=== PATIENT | male | born 1955 | race Hispanic/Latino ===

== ENCOUNTER 2018-04-05 10:10 | Inpatient (IN) | payer OTHER ==
[~2018-04-05] VITALS: Ht 167.6 cm; Wt 93.6 kg
[2018-04-05] MEDS ORDERED: IPRATROPIUM BROMIDE 0.02% 2.5 ML NEB NEB STA (10:20)
[2018-04-05] MEDS ORDERED: SODIUM CHLORIDE 0.9% 1000ML 1,000 ML IV STA (10:20)
[2018-04-05] MEDS ORDERED: ALBUTEROL SULF 0.083% NEB SOLN 3 ML NEB NEB STA (10:20)
[2018-04-05] MEDS ORDERED: BENZONATATE100 MG PO (10:33)
[2018-04-05] MEDS ORDERED: LISINOPRIL-HCT1 EAC1 PO (10:33)
[2018-04-05] MEDS ORDERED: CETIRIZINE HCL10 M1 PO (10:33)
[2018-04-05] MEDS ORDERED: ATORVASTATIN CA20 MG PO (10:33)
[2018-04-05] MEDS ORDERED: CRESTOR10 MG PO (10:33)
[2018-04-05] MEDS ORDERED: LOW DOSE ASPIRI81 MG PO (10:33)
[2018-04-05] MEDS ORDERED: FENOFIBRATE145 MG PO (10:33)
[2018-04-05 10:48] LABS: BASOPHILS # (AUTO) 0.1 (0.0-0.1); BASOPHILS % 0.7 % (0.0-1.0); EOSINOPHILS # (AUTO) 0.2 (0.0-0.4); EOSINOPHILS % 2.1 % (0.0-6.0); HEMATOCRIT 44.1 % (38.2-49.6); HEMOGLOBIN 14.1 g/dL (14.0-18.0); LYMPHOCYTES # (AUTO) 1.3 (1.0-3.2); MEAN CORPUSCULAR HEMOGLOBIN 27.8 pg (28-32); MONOCYTES # (AUTO) 0.8 (0.2-0.8); MONOCYTES % 9.3 % (4.4-11.3); NEUTROPHILS # (AUTO) 6.3 (2.1-6.9); NEUTROPHILS % 72.3 % (38.7-80.0); PLATELET COUNT 349 x10e3/uL (140-360); RED BLOOD COUNT 5.07 x10e6/uL (4.3-5.7); RED CELL DISTRIBUTION WIDTH 13.1 % (11.7-14.4)
[2018-04-05 10:57] LABS: INR 0.98; PARTIAL THROMBOPLASTIN TIME 29.7 seconds (23.8-35.5); PROTHROMBIN TIME 13.9 seconds (11.9-14.5)
[2018-04-05] MEDS ORDERED: KETOROLAC TROMETHAMINE 30 MG/ML VIAL IV ONE (11:00)
[2018-04-05] MEDS ORDERED: ACETAMINOPHEN/CODEINE ELIX 120-12 MG/5 ML UDC PO ONE (11:00)
[2018-04-05 11:05] LABS: ALANINE AMINOTRANSFERASE 20 IU/L (0-55); ALBUMIN 3.7 g/dL (3.5-5.0); ALBUMIN/GLOBULIN RATIO 0.9 (0.8-2.0); ALKALINE PHOSPHATASE 71 IU/L (40-150); ANION GAP 13.6 mmol/L (8-16); BLOOD UREA NITROGEN 14 mg/dL (7-26); BUN/CREATININE RATIO 15 (6-25); CALCIUM 9.8 mg/dL (8.4-10.2); CARBON DIOXIDE 24 mmol/L (22-29); CHLORIDE 100 mmol/L (98-107); CREATINE KINASE 338 IU/L (30-200); CREATININE, SERUM 0.96 mg/dL (0.72-1.25); EST GLOMERULAR FILTRATION RATE > 60 ML/MIN (60-); GLUCOSE 112 mg/dL (74-118); POTASSIUM 3.6 mmol/L (3.5-5.1); SODIUM 134 mmol/L (136-145)
--- NOTE | 2018-04-05 13:03 | Diagnostic Imaging Report ---
EXAMINATION: PA and lateral views of the chest. COMPARISON: None CLINICAL HISTORY: Cough with back and chest pain DISCUSSION: The lungs are well-inflated. There is consolidation anteriorly within the left lower lobe, with partial loss of the hemidiaphragmatic contour. Trace associated pleural effusion. Right lung is clear. Multiple median sternotomy wires and mediastinal surgical clips. Normal heart size. No overt pulmonary edema. No acute osseous abnormality. IMPRESSION: Left lower lobe pneumonia with trace parapneumonic effusion versus postsurgical pleural thickening. Follow-up chest radiograph in 8 weeks is suggested to document resolution. Signed by: Dr. Kelechi Temple M.D. on 04/05/2018 1:00 PM
[2018-04-05] MEDS ORDERED: SODIUM CHLORIDE 0.9% 1000ML 1,000 ML IV ONE (14:15)
[2018-04-05] MEDS: CEFTRIAXONE SOD 1 GM/NS 50 ML 50 ML IV SCH ×2 (14:37→18:30)
[2018-04-05] MEDS: ALBUTEROL SULF 0.083% NEB SOLN 3 ML NEB NEB SCH ×3 (15:00→23:00)
--- NOTE | 2018-04-05 15:00 | Diagnostic Imaging Report ---
EXAMINATION: CT scan of the chest without contrast. TECHNIQUE: Spiral CT images of the chest were performed from the lung apices to the level of the adrenal glands. No intravenous contrast was administered per referring physician request. Coronal and sagittal reformatted images were obtained. COMPARISON: Chest radiograph same day CLINICAL HISTORY:Pneumonia DISCUSSION: ABSENCE OF INTRAVENOUS CONTRAST DECREASES SENSITIVITY FOR DETECTION OF FOCAL LESIONS AND VASCULAR PATHOLOGY. LINES/TUBES: None. LUNGS AND AIRWAYS: Dense consolidation of the anterior aspect of the left lower lobe with adjacent groundglass and peribronchial vascular opacities within the posterior left lower lobe. Increased peribronchial soft tissue along the inferior lingular bronchi as well. Marked narrowing and abrupt cut off of the anterior and lateral segmental bronchi of the left lower lobe for example on series 3 image 59. 3 mm nodule in the periphery of the right upper lobe seen on series 3 image 31. Trace reticular and groundglass opacity in the dependent right lower lobe compatible with subsegmental atelectasis. PLEURA: Prominent extrapleural fat and lateral left basal pleural thickening. No pleural effusion or pneumothorax. HEART AND MEDIASTINUM: Visualized portions of the thyroid gland are unremarkable. Postoperative sequela of coronary artery bypass graft. Atherosclerotic calcification of the aortic arch and [place] coronary arteries. Heart size is normal. No pericardial effusion. LYMPH NODES: Mediastinal lymph nodes are increased in number though not enlarged by CT criteria. The largest individual lymph node is at the subcarinal station and measures 9 mm short axis. ABDOMEN: Visualized portions of the liver and spleen as well as the adrenal glands are unremarkable. BONES AND SOFT TISSUES: . Status post median sternotomy. Acute-subacute fracture deformity of the left lateral sixth rib with Healed fracture deformities of the left posterior ninth and posterior 10th ribs. Round, lucent lesion measuring 1 cm in the left side of the T11 vertebral body (series 2 image 101). Lucent lesion measuring 1.5 cm in diameter within the center of the T9 vertebral body (series 2 image 79). IMPRESSION: Anterior left lower lobe dense consolidation may represent pneumonia, though abrupt segmental bronchial cut off and peribronchial soft tissue extension to the hilum and along the inferior lingular bronchi raises the possibility of lung neoplasm with postobstructive pneumonia. (Of note, patient endorses cough and left-sided chest pain for the past 2 months). Pulmonary consultation for potential bronchoscopy is suggested. Lytic lesions in the T9 and T11 vertebral bodies are indeterminant and further evaluation with nuclear medicine bone scan or thoracic spine MRI is suggested. Signed by: Dr. Kelechi Temple M.D. on 04/05/2018 2:56 PM
[2018-04-05] MEDS: AZITHROMYCIN 500MG/NS 250 ML 250 ML IV SCH ×2 (15:14→18:30)
--- OUTSIDE RECORDS SUMMARY | 2018-04-05 15:43 | XMS REPORT ---
[facility] Address Unknown Phone Unavailable Care Team Providers Care Emu Farmer Name Role Phone Emanuel KIM Unavailable Unavailable Problems This patient has no known problems. Allergies, Adverse Reactions, Alerts This patient has no known allergies or adverse reactions. Medications This patient has no known medications. Results Test Description Test Time Test Comments Text Results Atomic Results Result Comments CT CHEST WO 2018-04-05 14:39:00 [place] [address] Patient Name: GLENIS NAQVI MR #: [id number] : 1955 Age/Sex: 62/M Req #: [id number] Adm Physician: Ordered by: LIZBETH KIM MD Report #: [id number] Location: ER Room/Bed: Procedure: [id number] CT/CT CHEST WO Exam Date: 04/05/18 Exam Time: 1408 REPORT STATUS: Signed EXAMINATION: CT scan of the chest without contrast. JUSTIN HNIQUE: Spiral CT images of the chest were performed from the lung apices to the level of the adrenal glands. No intravenous contrast was administered per referring physician request. Coronal and sagittal reformatted images were obtained. COMPARISON: Chest radiograph same day CLINICAL HISTORY:Pneumonia DISCUSSION: ABSENCE OF INTRAVENOUS CONTRAST DECREASES SENSITIVITY FOR DETECTION OF FOCAL LESIONS AND VASCULAR PATHOLOGY. LINES/TUBES: None. LUNGS AND AIRWAYS: Dense consolidation of the anterior aspect of the left lower lobe with adjacent groundglass and peribronchial vascular opacities within the posterior left lower lobe. Increased peribronchial soft tissue along the inferior lingular bronchi as well. Marked narrowing and abrupt cut off of the anterior and lateral segmental bronchi of the left lower lobe for example on series 3 image 59. 3 mm nodule in the periphery of the right upper lobe seen on series 3 image 31. Trace reticular and groundglass opacity in the dependent right lower lobe compatible with subsegmental atelectasis. PLEURA: Prominent extrapleural fat and lateral left basal pleural thickening. No pleural effusion or pneumothorax. HEART AND MEDIASTINUM: Visualized portions of the thyroid gland are unremarkable. Postoperative sequela of coronary artery bypass graft. Atherosclerotic calcification of the aortic arch and [place] coronary arteries. Heart size is normal. No pericardial effusion. LYMPH NODES: Mediastinal lymph nodes are increased in number though not enlarged by CT criteria. The largest individual lymph node is at the subcarinal station and measures 9 mm short axis. ABDOMEN: Visualized portions of the liver and spleen as well as the adrenal glands are unremarkable. BONES AND SOFT TISSUES: . Status post median sternotomy. Acute-subacute fracture deformity of the left lateral sixth rib with Healed fracture deformities of the left posterior ninth and posterior 10th ribs. Round, lucent lesion measuring 1 cm in the left side of the T11 vertebral body (series 2 image 101). Lucent lesion measuring 1.5 cm in diameter within the center of the T9 vertebral body (series 2 image 79). IMPRESSION: Anterior left lower lobe dense consolidation may represent pneumonia, though abrupt segmental bronchial cut off and peribronchial soft tissue extension to the hilum and along the inferior lingular bronchi raises the possibility of lung neoplasm with postobstructive pneumonia. (Of note, patient endorses cough and left-sided chest pain for the past 2 months). Pulmonary consultation for potential bronchoscopy is suggested. Lytic lesions in the T9 and T11 vertebral bodies are indeterminant and further evaluation with nuclear medicine bone scan or thoracic spine MRI is suggested. Signed by: Dr. Barbara Quarles M.D. on 04/05/2018 2:56 PM Dictated By: BARBARA QUARLES MD [id number] Transcribed By: JOSE on 04/05/18 2742 COPY TO: LIZBETH KIM MD CHEST 2 VIEWS 2018-04-05 12:57:00 [facility] [address] [address] Patient Name: GLENIS NAQVI MR #: [id number] : 1955 Age/Sex: 62/M Req #: [id number] Adm Physician: Ordered by: PARISH MOSQUERA NP Report #: [id number] Location: ER Room/Bed: Procedure: [id number] DX/CHEST 2 VIEWS Exam Date: Exam Time: REPORT STATUS: Signed EXAMINATION: PA and lateral views of the chest. COMPARISON: None CLINICAL HISTORY: Cough with back and chest pain DISCUSSION: The lungs are well-inflated. There is consolidation anteriorly within the left lower lobe, with partial loss of the hemidiaphragmatic contour. Trace associated pleural effusion. Right lung is clear. Multiple median sternotomy wires and mediastinal surgical clips. Normal heart size. No overt pulmonary edema. No acute osseous abnormality. IMPRESSION: Left lower lobe pneumonia with trace parapneumonic effusion versus postsurgical pleural thickening. Follow-up chest radiograph in 8 weeks is suggested to document resolution. Signed by: Dr. Barbara Quarles M.D. on 04/05/2018 1:00 PM Dictated By: BARBARA QUARLES MD 1300 Transcribed By: JOSE on 04/05/18 1300 COPY TO: PARISH MOSQUERA NP
[2018-04-05 16:35] VITALS: BP 128/66
[2018-04-05 17:50] VITALS: BP 128/66
[2018-04-05] MEDS: IPRATROPIUM BROMIDE 0.02% 2.5 ML NEB NEB SCH ×2 (18:00→19:00)
[2018-04-05 18:52] LABS: CREATINE KINASE 259 IU/L (30-200)
[2018-04-05 19:28] VITALS: BP 120/58
--- NOTE | 2018-04-05 19:43 | NUR ---
report given to oncoming nurse, for continued care.
[2018-04-05 22:59] VITALS: BP 120/58
[2018-04-06] VITALS (8 sets, daily range): BP systolic 118–143; BP diastolic 58–72
[2018-04-06] MEDS: IPRATROPIUM BROMIDE 0.02% 2.5 ML NEB NEB SCH ×4 (01:00→19:50)
[2018-04-06] MEDS: ALBUTEROL SULF 0.083% NEB SOLN 3 ML NEB NEB SCH ×4 (03:00→19:50)
[2018-04-06 03:17] LABS: CREATINE KINASE 234 IU/L (30-200)
[2018-04-06 06:12] LABS: BASOPHILS # (AUTO) 0.1 (0.0-0.1); BASOPHILS % 0.6 % (0.0-1.0); EOSINOPHILS # (AUTO) 0.3 (0.0-0.4); EOSINOPHILS % 3.9 % (0.0-6.0); HEMATOCRIT 42.1 % (38.2-49.6); HEMOGLOBIN 12.8 g/dL (14.0-18.0); LYMPHOCYTES # (AUTO) 1.5 (1.0-3.2); LYMPHOCYTES % 16.8 % (18.0-39.1); MEAN CORPUSCULAR HEMOGLOBIN 27.5 pg (28-32); MEAN CORPUSCULAR HGB CONC 30.4 g/dL (31-35); MEAN CORPUSCULAR VOLUME 90.3 fL (81-99); MONOCYTES # (AUTO) 0.9 (0.2-0.8); MONOCYTES % 9.8 % (4.4-11.3); NEUTROPHILS % 68.6 % (38.7-80.0); PLATELET COUNT 306 x10e3/uL (140-360); RED BLOOD COUNT 4.66 x10e6/uL (4.3-5.7); RED CELL DISTRIBUTION WIDTH 13.1 % (11.7-14.4)
[2018-04-06 06:40] LABS: CREATINE KINASE 220 IU/L (30-200)
[2018-04-06 06:42] LABS: ALANINE AMINOTRANSFERASE 18 IU/L (0-55); ALBUMIN 3.2 g/dL (3.5-5.0); ALKALINE PHOSPHATASE 58 IU/L (40-150); ANION GAP 11.9 mmol/L (8-16); BLOOD UREA NITROGEN 13 mg/dL (7-26); BUN/CREATININE RATIO 15 (6-25); CARBON DIOXIDE 24 mmol/L (22-29); CHLORIDE 103 mmol/L (98-107); CREATININE, SERUM 0.89 mg/dL (0.72-1.25); EST GLOMERULAR FILTRATION RATE > 60 ML/MIN (60-); GLUCOSE 96 mg/dL (74-118); POTASSIUM 3.9 mmol/L (3.5-5.1); SODIUM 135 mmol/L (136-145)
--- NOTE | 2018-04-06 08:29 | Consultation ---
DATE OF CONSULTATION: PULMONARY CONSULTATION This is a patient of Dr. Lubin. The patient was admitted with cough and chills of 2 months' duration, chest pain which he thought was related to the cough, and cramping pain. Cough was productive of white sputum. Two-pound weight loss. Feels tired easily on exertion. Works in the [employer]. NO ALLERGIES. His medications include Lipitor, Tessalon Perles, fenofibrate, Crestor, aspirin, Zyrtec, lisinopril, hydrochlorothiazide. He has a history of an [place] 5 years ago. He quit smoking at that time. He had bypass surgery at that time. Smoked a pack a day for 30 years. Family history is positive for cancer in mother, unknown type. Born in [place]. PHYSICAL EXAMINATION GENERAL: He is a well-developed, burly white male in no acute distress, looking his stated age. VITALS: Temperature 97, pulse 95, respirations 20, blood pressure 132/64. HEAD: Normocephalic and atraumatic. EYES: The extraocular movements are intact. LUNGS: Rales at left base. HEART: Regular rhythm. ABDOMEN: Nontender. EXTREMITIES: Not edematous. IMPRESSION 1. Postobstructive pneumonia. 2. Lung cancer with lytic lesions in T7 and T9 suspected. RECOMMENDATIONS: Continue antibiotic therapy. Hold aspirin. Bronchoscopy and biopsy to rule out occult endobronchial lesion. Bone scan is recommend by radiology. Thank you for this kind referral. Job#: [id number]
--- NOTE | 2018-04-06 14:30 | NUR ---
CASE MANAGEMENT INITIAL ASSESSMENT Tacking Machine Operator to bedside to discuss plan of care with patient/family. CM/SW role and care transitions discussed. Anticipated discharge plan discussed along with duration of care. CM/SW discussed patients right to make decisions in care. CM/SW work hours given. Patient lives: with , son, and dad Admit/Transfer: thru ED Hospital/ER visits since last admit: per pt, last hospitalized 4.5 years ago for a heart attack; 1 ED visit since then POA/Emergency contact: Marsha Ann [phone] Current/Previous Home Health: none PCP/Follow-up Care: Dr. Sommer - FERDIN[place] recommended to pt to follow up with MD within 7 days of discharge Current/Previous DME: none; pt is independent Medications (referring to index hospitalization or the first time you were in the hospital) a. Were changes made in your medications when you were in the hospital on [date of index hospitalization]? n/a b. Did you understand the changes? n/a c. Were you able to obtain your new medications right away? n/a d. Were you able to take your medications like the doctor wanted you to? n/a e. Did the hospital give you an accurate, easy to understand list of medications when you left? n/a Scale of 1-10 how comfortable does patient feel with disease management in outpatient settin Other Services: none Employment Status: employed at [employer] Areas of Concerns: PNA Referral Needs: none Education Needs: medical management IMM/KWAN given and signed (if applicable): n/a Goal for discharge: Home CM/SW left business card at the bedside with contact information. Name and number was also written on the patients whiteboard. Patient verbalized understanding of discussion. CM will follow-up with ongoing discharge and transition of care needs.
[2018-04-06] MEDS ORDERED: SODIUM CHLORIDE 0.9% 250ML 250 ML ONE (14:57)
--- NOTE | 2018-04-06 15:06 | NUR ---
Nutrition Screen Note RD Recommendation for Physician: -Continue cardiac diet as ordered Plan of Care: RD following, monitoring for tolerance and adequacy Nutrition reason for involvement: Nutrition Risk Trigger MST Primary Diagnose(s): 1. Postobstructive pneumonia. 2. Lung cancer with lytic lesions in T7 and T9 suspected. PMH: HLD, HTN, [place] Ht: 66in Wt: 192.13lb BMI: 31kg/m2 IBW: 124lb RD Assessment: (04/06) Chart reviewed. Labs and meds reviewed. 62yo M, who was admitted for cough x 2months. CT chest showed possible lung neoplasm with postobstructive PNA and lytic lesions in the T9 and T11 vertebral bodies. Visited pt in the room. Pt reported ~2lbs weight loss and decreased appetite in the last 2 months. No sign of fat or muscle loss upon NFPA. For lunch today, pt reported fair appetite with >50% observed meal intake. No GI complains noted. LBM 04/06. Pt denied any chewing or swallowing difficulty. Will continue to monitor and follow. Current Diet: cardiac diet Malnutrition Evaluation (04/06/2018) The patient does not meet criteria for a specified degree of malnutrition at this time. Will re-evaluate at follow-up as appropriate. Energy intake: <75% of estimated energy requirements for >1 month Weight loss: 2lbs weight loss in 2 months, insignificant Fat loss: none Muscle loss: none Supporting Evidence: Fluid accumulation: unable to evaluate Functional Status: no changes Diet Education Needs Assessment: Diet education not indicated. Nutrition Care Level: low Signed: Lisa Gonzales, MS, RD, LD
[2018-04-06] MEDS: CEFTRIAXONE SOD 1 GM/NS 50 ML 50 ML IV SCH (15:14)
[2018-04-06] MEDS: AZITHROMYCIN 500MG/NS 250 ML 250 ML IV SCH (15:41)
--- NOTE | 2018-04-06 20:22 | Diagnostic Imaging Report ---
Bone Scan, three-phase Reason for exam: Lytic lesion in T9 on recent CT. Cough and left sided chest pain x 2 weeks. Radiopharmaceutical: Tc-99m MDP 25.5 mCi Comparison: CT chest 04/05/2018; chest radiograph 04/05/2018 Following intravenous administration of the radiopharmaceutical, dynamic flow and immediate blood pool images thorax followed by delayed total body and selected spot images were obtained. Tomographic (SPECT) images of the thoracolumbar spine were also obtained. Flow and blood pool images show physiologic distribution of tracer activity. The delayed planar images show markedly increased tracer is T9 with smaller foci of increased tracer on the left side of T8 and the right side of L1. On the tomographic images, tracer uptake in T9 is localized to the vertebral body. Tracer uptake in T8 is localized to the left facet and uptake in L1 is localized to the vertebral body. Small focal areas of increased tracer activity are see in the left 4th rib anterolaterally and in the left 7th rib posteriorly. Two small foci of very mildly increased tracer are see in the left 9th and 10th ribs posteriorly. Changes in the manubrium and sternum are consistent with prior median sternotomy. Otherwise, distribution of tracer is unremarkable throughout the skeletal system. No abnormal accumulation of tracer is seen in the soft tissues or urinary tract. Impression: 1. The markedly osteoblastic process in T9 is worrisome for bone metastasis given lytic appearance of recent CT. The osteoblastic process in the left side of T8 is more typical of degenerative change but the osteoblastic process in L1 is nonspecific and of concern for metastasis. 2. No abnormal metabolic bone activity is seen in T11 to correspond to lesion at that site on recent CT. 3. Osteoblastic processes in the left 4th anterolaterally and 7th rib posterior are nonspecific. These may be related to trauma, including trauma from recent coughing or direct extension of disease from underlying left lung mass versus, less likely, hematogenous metastases. 3. Two old healed rib fractures are noted in the left 9th and 10th ribs posteriorly and correspond to healed fracture deformities seen on CT. Signed by: Dr. Macie Gorman M.D. on 04/06/2018 8:18 PM
[2018-04-07] VITALS (9 sets, daily range): BP systolic 98–130; BP diastolic 63–65
[2018-04-07] MEDS: ALBUTEROL SULF 0.083% NEB SOLN 3 ML NEB NEB SCH ×4 (02:40→20:00)
[2018-04-07] MEDS: IPRATROPIUM BROMIDE 0.02% 2.5 ML NEB NEB SCH ×4 (02:40→20:00)
--- NOTE | 2018-04-07 08:14 | Progress Note ---
DATE: April 07, 2018 Mr. Ann is a 62-year-old man with a history of coronary artery disease, hypertension, hyperlipidemia, who started 2 months ago with cough and some shortness of breath. He decided to come to the emergency room. The chest x-ray showed left lower infiltrate. The patient was admitted and started on IV antibiotics. PHYSICAL EXAMINATION GENERAL: Today, he is awake and alert. VITALS: Temperature is 99, blood pressure 98/65. HEART: Regular rate. LUNGS: Have some crackles at the left base. ABDOMEN: Distended and soft. BLOOD WORK: Potassium 3.9, creatinine is 0.89, glucose is 96. White count 8.79, hemoglobin 12.8, hematocrit is 42.1. Chest CT shows left lower lobe dense consolidation that may be pneumonia with bronchial cutoff concerning for malignancy and lytic lesions in T9 and T11. Bone scan done yesterday shows osteoblastic process in T9 worrisome for bone metastasis. There is another osteoblastic process in the 4th and 7th ribs posterior. ASSESSMENT AND PLAN 1. Cough. 2. Left lower lobe consolidation concerning for malignancy. 3. Probably lung cancer with bone metastasis. 4. Coronary artery disease: Status post coronary artery bypass graft. 5. Hypertension. 6. Hyperlipidemia. PLAN: At the present time, is hold aspirin. Continue IV antibiotics. The patient is going to go today for bronchoscopy and biopsy to rule out malignancy. All of this was discussed with the patient. All questions were answered to satisfaction. Job#: [id number] MOA
[2018-04-07] MEDS ORDERED: PNEUMOCOCCAL VACCINE POLYVALENT 23 MCG/0.5 ML VIAL IM SCH (09:42)
[2018-04-07] MEDS ORDERED: INFLUENZA VIRUS VAC SPLIT INJ 0.5 ML SYR IM SCH (09:42)
--- NOTE | 2018-04-07 12:30 | NUR ---
pt off unit for bronchoscopy at this time
[2018-04-07] MEDS ORDERED: EPINEPHRINE HCL 1:1000 1ML 1 MG/ML AMP ONE (12:50)
[2018-04-07] MEDS ORDERED: LIDOCAINE HCL 4% 50 ML BTL ONE (12:50)
[2018-04-07] MEDS ORDERED: ACETYLCYSTEINE 200 MG/ML 4ML VIAL ONE (12:50)
[2018-04-07] MEDS ORDERED: LIDOCAINE JELLY 2% 10ML URO-JET ONE (12:53)
--- NOTE | 2018-04-07 14:10 | Consultation ---
DATE OF CONSULTATION: REASON FOR CONSULTATION: Sepsis and pneumonia. This patient who is a 62-year-old gentleman comes in with cough, which he had for 2 months, shortness of breath and fever sensation. The cough was productive of whitish sputum. The patient has a history of hypercholesterolemia, history of hypertension, coronary artery disease, myocardial infarction. He used to smoke but quit 5 years ago after the myocardial infarction. He used to smoke 1-pack per day for 30 years. Comes in with the above complaints. Pulmonary consulted. Infectious disease was consulted. LABORATORY DATA: Reviewed. On admission, white count 8.79, hemoglobin 12.8. His sodium is 135, potassium 3.9, creatinine 0.85. His CT of the chest and chest x-ray was done and showed anterior left lobe dense consolidation. PHYSICAL EXAMINATION GENERAL: He is currently alert oriented. Does not seem to be in acute distress. VITALS: Stable. Currently afebrile. HEENT: He is not icteric. NECK: Supple. CHEST: Crackles on the right. CORE: S1 and S2. No S3, S4 or murmur. ABDOMEN: Soft. Bowel sounds present. EXTREMITIES: No edema. IMPRESSION 1. Cough for 2 months: This could be atypical pneumonia. I am really concerned about malignancy. Agree with biopsy. Continue with the current choice of intravenous antibiotics of Rocephin and Azithromycin. 2. He does have a lytic lesion at T7 and T9, which is very suspicious of malignancy with mets. Will follow with you. Job#: [id number] OMA
--- NOTE | 2018-04-07 14:18 | Operative Report ---
DATE OF PROCEDURE: PROCEDURE: Bronchoscopy. Patient with persistent cough and pain over a 3-month period. Chest x-ray revealed a left lower lobe pneumonia. CT scan revealed what appeared to be bronchial narrowing of left lower lobe with possible cutoff. The patient was bronchoscoped under MAC anesthesia. Dr. Simmons was the anesthesiologist. A #5 LMA was used. There was good visualization of the vocal cords, which were inflamed, as were the false cords. Movement was equal. There was moderately severe tracheobronchitis. There were narrowing and submucosal inflammation about the left lower lobe bronchus. No obstructing lesions, however, were seen. Bronchial biopsies and brushings were obtained under fluoroscopic control. Five biopsies and 2 sets of brushings. The patient tolerated the procedure well. He was extubated in the endoscopy suite. Job#: [id number]
--- NOTE | 2018-04-07 14:25 | NUR ---
received report from julio césar in [place]. states pt has been tachycardiac and md barajas is aware . pt will be on tele monitoring . awaiting for pt to arrive to unit
--- NOTE | 2018-04-07 14:52 | Diagnostic Imaging Report ---
Examination: Single AP view of the chest. COMPARISON: CT chest without contrast 04/05/2018 INDICATION: Status post bronchoscopy DISCUSSION: Persistent left lower lobe airspace consolidation. No pneumothorax status post bronchoscopy. Right lung remains grossly clear. Postsurgical changes of the mediastinum. No acute osseous abnormality. IMPRESSION: Persistent left lower lobe consolidation. No pneumothorax status post left lower lobe bronchoscopy and biopsy. Signed by: Dr. Kelechi Temple M.D. on 04/07/2018 2:48 PM
--- NOTE | 2018-04-07 14:59 | NUR ---
PT BACK FROM BRONCHOSCOPY [id number]. PT REPORTS NO PAIN. WILL CONTINUE TO CARE AT THIS TIME
[2018-04-07] MEDS: CEFTRIAXONE SOD 1 GM/NS 50 ML 50 ML IV SCH (15:27)
[2018-04-07] MEDS: AZITHROMYCIN 500MG/NS 250 ML 250 ML IV SCH (16:39)
--- NOTE | 2018-04-07 19:15 | NUR ---
patient recieved awake, alert, lying quietly in bed. vss. no c/o pain noted. respirations even and unlabored. 02/2l/nc in use. pm assessment complete. patient instructed to call for assistance when needed.
[2018-04-07] MEDS ORDERED: MIDAZOLAM HCL 2 MG/2 ML VIAL ONE (19:30)
[2018-04-07] MEDS ORDERED: FENTANYL CITRATE/PF 100MCG/2 ML INJ ONE (19:30)
[2018-04-07] MEDS ORDERED: PROPOFOL IV EMULSION 10 MG/ML 20 ML VIAL ONE (19:38)
[2018-04-07] MEDS ORDERED: PHENYLEPHRINE HCL 1% 10 MG/ML VIAL ONE (19:38)
[2018-04-07] MEDS ORDERED: LIDOCAINE HCL 2% LOCAL INJ 5 ML SDV VIAL INJ ONE (19:38)
[2018-04-07] MEDS ORDERED: ONDANSETRON HCL INJ 2MG/ML 2ML 2 MG/ML VIAL ONE (19:38)
[2018-04-07] MEDS ORDERED: SEVOFLURANE INHAL SOLN 250 ML PEN BTL ONE (19:38)
[2018-04-08] VITALS (8 sets, daily range): BP systolic 111–128; BP diastolic 60–65
[2018-04-08] MEDS: ALBUTEROL SULF 0.083% NEB SOLN 3 ML NEB NEB SCH ×4 (00:22→19:11)
[2018-04-08] MEDS: IPRATROPIUM BROMIDE 0.02% 2.5 ML NEB NEB SCH ×4 (00:22→19:11)
--- NOTE | 2018-04-08 07:02 | NUR ---
Received patient mid fowlers position, side rails upx2, call light within reach. AAOX3 to time, person, place. Respirations even and unlabored. O2 2l NC. Instructed patient to use call light for assistance. Voiced understanding. Will continue to monitor.
--- NOTE | 2018-04-08 08:47 | Progress Note ---
DATE: April 08, 2018 Mr. Ann is a 62-year-old man with a history of coronary artery disease, hypertension, hyperlipidemia, who 2 months ago started with cough. Came to the emergency room with shortness of breath. He was found to have postobstructive pneumonia. He was started on IV antibiotics. Went for a bronchoscopy yesterday. He was also found to have some lytic bone lesions. PHYSICAL EXAMINATION GENERAL: Today, he is awake and alert. VITALS: Temperature is 98, blood pressure is 128/60. HEART: Regular rate. LUNGS: He has crackles on the left base. ABDOMEN: Distended and soft. BLOOD WORK: Potassium 3.9, creatinine 0.89, glucose 96. White count 8.79, hemoglobin 12.8, hematocrit 42.1. The bone scan showed osteoblastic process in T9 and also osteoblastic process in 4th and 7th ribs posterior. ASSESSMENT AND PLAN 1. Shortness of breath with cough. 2. Left lower lobe consolidation, postobstructive pneumonia. 3. Probable lung cancer with bone metastasis. 4. Lytic lesions in spine and ribs. 5. Coronary artery disease: Status post coronary artery bypass graft. 6. Hypertension. 7. Hyperlipidemia. PLAN: At the present time, is to continue IV antibiotics. Continue to monitor respiratory status. He had a bronchoscopy done yesterday. He is going to go for the bone lesion biopsies. All of this was discussed with the patient. All questions were answered to satisfaction. Job#: [id number] [place]
[2018-04-08] MEDS ORDERED: FENOFIBRATE 145 MG TAB PO SCH (09:00)
[2018-04-08] MEDS: LISINOPRIL 20 MG TAB PO SCH (09:12)
[2018-04-08] MEDS: HYDROCHLOROTHIAZIDE 25 MG TAB PO SCH (09:12)
[2018-04-08] MEDS: LORATADINE 10 MG TAB PO SCH (09:12)
[2018-04-08] MEDS: BENZONATATE 100 MG CAP PO SCH ×3 (09:13→21:57)
[2018-04-08] MEDS ORDERED: INFLUENZA VIRUS VAC SPLIT INJ 0.5 ML SYR IM ONE (09:30)
[2018-04-08] MEDS ORDERED: PNEUMOCOCCAL VACCINE POLYVALENT 23 MCG/0.5 ML VIAL IM ONE (09:30)
[2018-04-08] MEDS: CEFTRIAXONE SOD 1 GM/NS 50 ML 50 ML IV SCH (14:00)
[2018-04-08] MEDS: AZITHROMYCIN 500MG/NS 250 ML 250 ML IV SCH (14:46)
--- NOTE | 2018-04-08 15:44 | NUR ---
Dr.Quraishi Rodney phillips for new consult.
--- NOTE | 2018-04-08 19:10 | NUR ---
Report given to oncoming nurse of patient's status. No s/s of acute distress noted.
--- NOTE | 2018-04-08 19:45 | NUR ---
Received patient from day nurse, patient is alert and oriented x 4, introduced self to patient and patient encouraged to verbalized all concerns. safety and fall precautions maintained as per hospital protocol: bed in lowest position and locked, needed items beside bed and call conway placed close to patient, patient instructed to use it to call nurses for any assistance needed, patient verbalized understanding. patient is currently stable, will continue to monitor.
[2018-04-08] MEDS: SIMVASTATIN 40 MG TAB PO SCH (21:57)
[2018-04-09] VITALS (7 sets, daily range): BP systolic 108–119; BP diastolic 55–63
[2018-04-09] MEDS: IPRATROPIUM BROMIDE 0.02% 2.5 ML NEB NEB SCH ×4 (00:35→19:50)
[2018-04-09] MEDS: ALBUTEROL SULF 0.083% NEB SOLN 3 ML NEB NEB SCH ×4 (00:35→19:50)
--- NOTE | 2018-04-09 07:20 | NUR ---
RECEIVED PT AAOX3 NO COMPLAINTS AT THIS TIME NO S/S OF DISTRESS NOTED. CALL LIGHT WITHIN REACH. INSTRUCTED TO CALL FOR ASSISTANCE. WILL CONTINUE TO MONITOR.
--- NOTE | 2018-04-09 07:49 | NUR ---
patient condition throughout the night was stable, patient endorsed to next shift for continuity of care.
[2018-04-09] MEDS: FENOFIBRATE 145 MG TAB PO SCH (09:44)
[2018-04-09] MEDS: HYDROCHLOROTHIAZIDE 25 MG TAB PO SCH (09:44)
[2018-04-09] MEDS: LORATADINE 10 MG TAB PO SCH (09:44)
[2018-04-09] MEDS: LISINOPRIL 20 MG TAB PO SCH (09:44)
[2018-04-09] MEDS: BENZONATATE 100 MG CAP PO SCH ×3 (09:44→20:35)
[2018-04-09] MEDS: CEFTRIAXONE SOD 1 GM/NS 50 ML 50 ML IV SCH (14:55)
[2018-04-09] MEDS: AZITHROMYCIN 500MG/NS 250 ML 250 ML IV SCH (14:55)
--- NOTE | 2018-04-09 19:23 | NUR ---
RECEIVED PATIENT IN BED WITH FAMILY MEMBERS AT BEDSIDE. ASSISTED IN THE SHOWER. PATIENT WAS INSTRUCTED TO CALL FOR ASSISTANCE IF NEEDED.
[2018-04-09] MEDS: SIMVASTATIN 40 MG TAB PO SCH (20:35)
[2018-04-10] VITALS (8 sets, daily range): BP systolic 100–125; BP diastolic 51–71
--- NOTE | 2018-04-10 06:58 | NUR ---
REPORT GIVEN TO ONCOMING NURSE.
[2018-04-10] MEDS: ALBUTEROL SULF 0.083% NEB SOLN 3 ML NEB NEB SCH ×5 (07:30→23:38)
[2018-04-10] MEDS: IPRATROPIUM BROMIDE 0.02% 2.5 ML NEB NEB SCH ×5 (07:30→23:37)
[2018-04-10] MEDS: LISINOPRIL 20 MG TAB PO SCH (08:31)
[2018-04-10] MEDS: BENZONATATE 100 MG CAP PO SCH ×3 (08:31→20:46)
[2018-04-10] MEDS: FENOFIBRATE 145 MG TAB PO SCH (08:31)
[2018-04-10] MEDS: LORATADINE 10 MG TAB PO SCH (08:31)
[2018-04-10] MEDS: HYDROCHLOROTHIAZIDE 25 MG TAB PO SCH (08:31)
--- NOTE | 2018-04-10 11:26 | NUR ---
PT STATES HE IS NOT AWARE OF BONE BIOPSY TOMORROW. DR. SCHMIDT SPOKE TO PT. PT STATES HE WOULD LIKE TO SPEAK TO FIRST AND WILL NOTIFY NURSE IF HE WOULD LIKE TO PROCEED WITH PROCEDURE. WILL WAIT FOR DECISION SO PT CAN SIGN CONSENT.
[2018-04-10] MEDS: CEFTRIAXONE SOD 1 GM/NS 50 ML 50 ML IV SCH (14:51)
--- NOTE | 2018-04-10 15:10 | NUR ---
SPOKE TO KRISTAL WITH DR. SMITH ANSWERING SERVICE, NOTIFIED REGARDING CONSULT. STATES DR. HULL IS DYNAMOMETER TESTER TODAY.
[2018-04-10] MEDS: AZITHROMYCIN 500MG/NS 250 ML 250 ML IV SCH (15:24)
--- NOTE | 2018-04-10 19:00 | NUR ---
Patient is in bed. alert and oriented. No complaints at this time. Instructed to be NPO after midnight. Patient expressed understanding.
[2018-04-10] MEDS: SIMVASTATIN 40 MG TAB PO SCH (20:46)
[2018-04-11] VITALS (8 sets, daily range): BP systolic 100–138; BP diastolic 57–79
[2018-04-11 06:04] LABS: BASOPHILS # (AUTO) 0.1 (0.0-0.1); EOSINOPHILS # (AUTO) 0.4 (0.0-0.4); EOSINOPHILS % 4.6 % (0.0-6.0); HEMATOCRIT 41.8 % (38.2-49.6); HEMOGLOBIN 13.5 g/dL (14.0-18.0); LYMPHOCYTES # (AUTO) 1.5 (1.0-3.2); LYMPHOCYTES % 18.8 % (18.0-39.1); MEAN CORPUSCULAR HGB CONC 32.3 g/dL (31-35); MEAN CORPUSCULAR VOLUME 86.7 fL (81-99); MONOCYTES # (AUTO) 0.8 (0.2-0.8); MONOCYTES % 10.3 % (4.4-11.3); NEUTROPHILS # (AUTO) 5.2 (2.1-6.9); NEUTROPHILS % 64.8 % (38.7-80.0); PLATELET COUNT 338 x10e3/uL (140-360); RED BLOOD COUNT 4.82 x10e6/uL (4.3-5.7); RED CELL DISTRIBUTION WIDTH 12.9 % (11.7-14.4)
[2018-04-11 06:26] LABS: INR 1.01; PROTHROMBIN TIME 14.2 seconds (11.9-14.5)
[2018-04-11 06:27] LABS: PARTIAL THROMBOPLASTIN TIME 36.5 seconds (23.8-35.5)
[2018-04-11 06:39] LABS: ANION GAP 14.5 mmol/L (8-16); BLOOD UREA NITROGEN 19 mg/dL (7-26); BUN/CREATININE RATIO 22 (6-25); CALCIUM 9.9 mg/dL (8.4-10.2); CARBON DIOXIDE 24 mmol/L (22-29); CHLORIDE 98 mmol/L (98-107); CREATININE, SERUM 0.86 mg/dL (0.72-1.25); EST GLOMERULAR FILTRATION RATE > 60 ML/MIN (60-); GLUCOSE 105 mg/dL (74-118); POTASSIUM 3.5 mmol/L (3.5-5.1); SODIUM 133 mmol/L (136-145)
[2018-04-11] MEDS: IPRATROPIUM BROMIDE 0.02% 2.5 ML NEB NEB SCH ×4 (07:00→23:31)
[2018-04-11] MEDS: ALBUTEROL SULF 0.083% NEB SOLN 3 ML NEB NEB SCH ×4 (07:00→23:31)
--- NOTE | 2018-04-11 07:33 | NUR ---
REPORT GIVEN TO ONCOMING NURSE.
[2018-04-11] MEDS: BENZONATATE 100 MG CAP PO SCH ×3 (09:00→20:39)
[2018-04-11] MEDS: HYDROCHLOROTHIAZIDE 25 MG TAB PO SCH (09:00)
[2018-04-11] MEDS: LORATADINE 10 MG TAB PO SCH (09:00)
[2018-04-11] MEDS: LISINOPRIL 20 MG TAB PO SCH (09:00)
[2018-04-11] MEDS: FENOFIBRATE 145 MG TAB PO SCH (09:00)
--- NOTE | 2018-04-11 09:31 | Progress Note ---
DATE: April 11, 2018 Mr. Ann is a 62-year-old man with a history of coronary artery disease, hypertension, hyperlipidemia, who came to the emergency room complaining of 2 months of cough and shortness of breath. He was found to have a postobstructive pneumonia. Found to have also bone lesions. Had a bronchoscopy done and biopsy, but report showed malignancy. She is on IV antibiotics. The plan is to have a biopsy of the bone lesions for tissue diagnosis. The patient was already seen by oncologist during the weekend. PHYSICAL EXAMINATION GENERAL: Today, he is awake and alert. VITALS: Temperature is 98, blood pressure is 100/57. HEART: Regular rate. LUNGS: He has some left lower crackles. ABDOMEN: Distended and soft. BLOOD WORK: Potassium 3.5, creatinine is 0.86, glucose is 105. White count is 7.97, hemoglobin 13.5, hematocrit is 41.8. Bone scan showed osteoblastic process in T9 and also osteoblastic process in the 4th and 7th ribs. ASSESSMENT AND PLAN 1. Shortness of breath with cough. 2. Left lower lobe postobstructive pneumonia. 3. Probable lung cancer with bone metastasis. 4. Lytic lesions in the spine and ribs. 5. Coronary artery disease: Status post coronary artery bypass graft. 6. Hypertension. 7. Hyperlipidemia. 8. Elevated prostatic-specific antigen. PLAN: At the present time, is to continue IV antibiotics. Patient already had a bronchoscopy. He was seen by oncologist. He is supposed to go for bone biopsy for tissue diagnosis for further treatment. All of this was discussed with the patient. All questions were answered to satisfaction. Job#: [id number] [place]
[2018-04-11] MEDS ORDERED: GADOBENATE DIMEGLUMINE 1 ML IV ONE (11:34)
--- NOTE | 2018-04-11 12:30 | NUR ---
SPOKE WITH RADIOLOGY ABOUT AN UPDATE ON TIME OF BONE BIOPSY. STATES SUPPLIED FOR PROCEDURE WILL NOT GET HERE TODAY. BIOPSY WILL BE TOMORROW, CHANGED NPO STATUS TO CARDIAC AT THIS TIME
[2018-04-11] MEDS: CEFTRIAXONE SOD 1 GM/NS 50 ML 50 ML IV SCH (16:42)
[2018-04-11] MEDS: AZITHROMYCIN 500MG/NS 250 ML 250 ML IV SCH (17:10)
[2018-04-11] MEDS: SIMVASTATIN 40 MG TAB PO SCH (20:39)
[2018-04-12] VITALS: BP 122/58
--- NOTE | 2018-04-12 06:58 | NUR ---
REPORT GIVEN TO ONCOMING NURSE,WALKING ROUNDS MADE.PT RESTING IN BED WITH NO S/S OF DISTRESS.
[2018-04-12] MEDS: IPRATROPIUM BROMIDE 0.02% 2.5 ML NEB NEB SCH (07:00)
[2018-04-12] MEDS: ALBUTEROL SULF 0.083% NEB SOLN 3 ML NEB NEB SCH (07:00)
[2018-04-12 08:18] VITALS: BP 119/74
[2018-04-12] MEDS: LISINOPRIL 20 MG TAB PO SCH (09:00)
[2018-04-12 09:30] VITALS: BP 119/74
[2018-04-12] MEDS: HYDROCHLOROTHIAZIDE 25 MG TAB PO SCH (10:07)
[2018-04-12] MEDS: LORATADINE 10 MG TAB PO SCH (10:07)
[2018-04-12] MEDS: BENZONATATE 100 MG CAP PO SCH (10:08)
[2018-04-12] MEDS: FENOFIBRATE 145 MG TAB PO SCH (10:08)
--- NOTE | 2018-04-12 10:24 | NUR ---
paged md wilson for dc orders
[2018-04-12] MEDS ORDERED: AUGMENTIN 875-1 EACH PO (10:26)
--- NOTE | 2018-04-12 10:52 | Diagnostic Imaging Report ---
Examination: MRI of the Thoracic Spine without and with Contrast History: Lytic lesions seen on recent CT. Comparison studies: None Technique: Sagittal T1, T2, STIR, post contrast axial and sagittal T1 and axial T2 Intravenous contrast: 20mL of MultiHance Findings: Alignment: Normal thoracic kyphosis. No scoliosis. Lower thoracic cord: Normal in signal and morphology. The tip of the conus is at T12-L1 . Soft tissues: No abnormality. Paraspinal muscles: Well preserved. Vertebrae: No compression fractures or infection. There are enhancing lesions within the T3, T7, T9 and partially visualized L1 vertebrae. There is no height loss of the T3, T7, T9 vertebrae. A similar, cannot be made with L1 which is partially visualized. In the right aspect of the T3 vertebral body, the lesion measures 0.8 x 1.4 x 0.6 cm (superoinferior x anteroposterior x transverse dimensions). In the left aspect of T7, the lesion measures 1.1 x 1.0 x 0.9 cm (superoinferior x anteroposterior x transverse dimensions). In the right aspect of T9, the lesion measures 1.7 x 1.9 x 1.8 cm (superoinferior x anteroposterior x transverse dimensions). In the right aspect of L1, the lesion measures 1.5 x 2.7 x 1.0 cm (superoinferior x anteroposterior x transverse dimensions). Degenerative changes: There is ossification of posterior longitudinal ligament from T3 through T9. T10-T11: Asymmetric to the right disc bulge and moderate bilateral facet arthropathy result in mild right foraminal and mild canal stenosis. T11-T12: Diffuse disc bulge, mild ligamentum flavum thickening and moderate bilateral facet arthropathy result in mild canal stenosis and no foraminal stenosis The remainder of the thoracic levels demonstrate no disc herniation or canal stenosis. Lungs: Partially visualized small left pleural effusion. IMPRESSION: 1. Several lesions within the T3, T7, T9 and partially visualized L1 vertebrae are concerning for metastasis. There is no height loss of the T3, T7 or T9 vertebrae. A similar comment cannot be made on the L1 vertebral body as is not completely visualized. 2. 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 3. Mild degenerative changes with mild canal stenosis at T11-T12. 4. Partially visualized small left pleural effusion. Signed by: Dr. Shannon Hicks M.D. on 04/12/2018 12:45 PM
--- NOTE | 2018-04-12 11:20 | NUR ---
PULMONOLOGY, INFECTIOUS, AND DRUM ATTENDANT HAVE CLEARED PT FOR DC. SPOKE WITH MD KILPATRICK ORDER FOR DC GIVEN. WILL DC PT AT THIS TIME
[2018-04-12 12:12] VITALS: BP 130/77
--- NOTE | 2018-04-12 12:21 | NUR ---
DISCHARGE INSTRUCTIONS AND PRESCRIPTIONS GIVEN. IV DC. PRESSURE DRESSING APPLIED AND TAPED. PT AGREED TO FOLLOW UP VISIT WITH PRIMARY AND WAS HIGHLY ENCOURAGED TO SEE [facility] FOR ONCOLOGIST REFERRAL. PT FILLED OUT MEDICAL REQUEST FORM. PT HAS ALSO GIVEN MULTIPLE ONCOLOGY DOCTORS TO CALL AND INSTRUCTED TO CALL INSURANCE FOR ONCOLOGY LIST OF DOCTORS. PT IS AWARE OF DIAGNOSIS AND ITS URGENCY FOR FOLLOW UP , PT AND FAMILY STATE FOLLOW UP VISITS WILL BE SCHEDULED AFTER DC TODAY. PT IS NOW UNIT TO HOME VIA WHEELCHAIR
--- NOTE | 2018-04-12 13:05 | Consultation ---
DATE OF CONSULTATION: 04/11/2018 HISTORY OF PRESENT ILLNESS: Mr. Ann is a 62-year-old male, who has been referred to me for evaluation of lung cancer with bone metastases, possible cancer of the prostate. The patient had presented with pain. SOCIAL HISTORY: Noncontributory. FAMILY HISTORY: Noncontributory. ALLERGIES: REPORTED NONE. MEDICATIONS: At this time consist of, 1. Zithromax. 2. Ceftriaxone. 3. Albuterol. 4. Atrovent. 5. Benzonatate. 6. Fenofibrate. 7. Hydrochlorothiazide. 8. Lisinopril. 9. Simvastatin. 10. Claritin. REVIEW OF SYSTEMS: HEENT: Normal. CARDIAC: History of hypertension. RESPIRATORY: Lung cancer. GI: Normal. : High PSA. MUSCULOSKELETAL: Bone metastases. NEUROENDOCRINE: Essentially normal. PHYSICAL EXAMINATION: GENERAL: Moderately developed male. NECK: No palpable adenopathy. HEART: Everything within normal limits. LUNGS: Clear. ABDOMEN: Obese. RECTAL: Deferred. CENTRAL NERVOUS SYSTEM: Essentially normal. EXTREMITIES: Essentially normal. LABORATORY DATA: CBC on 04/05 shows a hemoglobin of 14.1, hematocrit of 44.1, white count of 8700, platelets are reported at 349,000. Chemistry shows a sodium of 134, potassium of 3.6, chloride is 100, CO2 of 24, BUN is 14, and creatinine 0.9. CK was high at 338. Total protein is 8, albumin is 3.7. Globulin is slightly high at 4.3, however, repeat globulins on 04/06 were normal at 3.3. PSA high at 12.3. CEA high at 115.9. CT of the chest had shown a left lower lobe consolidation, possibly postobstructive bronchopneumonia. As per my personal communication with Dr. Wynn, who has done the bronchoscopy, this was preliminarily reported as carcinoma of the lung. He had a CT of the chest, also showed a lytic lesion at T9 and T11. IMPRESSION: 1. Lung cancer with bone metastases. 2. Lytic lesion T9 and T11. 3. Status post coronary artery bypass procedure. 4. Left lower lobe postobstructive bronchopneumonia. 5. Osteoblastic left 4th and 7th rib metastases. 6. PSA of 12.3, rule out prostate cancer. PLAN/COMMENT/SUGGESTION: MRI of the T9 and T11. Because of the high CEA, this is of epithelial origin, there is no doubt clinically that he has lung cancer with bone metastases. I am not on the [facility], the patient will have to be referred to a different physician to take care of him. Prognosis remains extremely poor. I have communicated with Dr. Rivka Lubin regarding this. MD ROBINA Rooney/MODL /[id number] cc: MD Kelechi Smith MD
--- NOTE | 2018-04-12 13:56 | Discharge Summary ---
HOSPITAL COURSE: Mr. Ann is a 62-year-old man with history of coronary artery disease, hypertension, hyperlipidemia, came to the emergency room complaining of two-month history of cough and shortness of breath. He was found to have a postobstructive pneumonia, started on antibiotics. Also, found to have bone lesions, had a bronchoscopy done that was positive for malignancy, underwent an MRI of the spine yesterday, results are pending. He has been also evaluated by Oncology. The plan is to probably discharge him home today and have him follow up with Dr. Guajardo as an outpatient for further workup and treatment of his bone lesions. PHYSICAL EXAMINATION: GENERAL: Today, he is awake and alert. He is feeling better. VITAL SIGNS: Temperature is 96.6, blood pressure is 119/74. HEART: Regular rate. LUNGS: Some crackles on the left base. ABDOMEN: Distended and soft. LABORATORY DATA: On the blood work, potassium 3.5, creatinine is 0.86, and glucose 105. White count 7.97, hemoglobin 13.5, and hematocrit 41.8. MRI of the thoracic spine is pending. Chest x-ray shows left lower lobe consolidation. Bone scan shows osteoblastic process in T9 as well as left 4th and 7th ribs. Chest CT shows consolidation on the left lower lobe with a bronchial cut off, peribronchial soft tissue extension concerning for malignancy. DISCHARGE DIAGNOSES: 1. Shortness of breath and cough. 2. Left lower lobe postobstructive pneumonia. 3. Probably lung cancer with bone metastasis. 4. Lytic lesions in his spine and ribs. 5. Coronary artery disease, status post coronary artery bypass grafting. 6. Hypertension. 7. Hyperlipidemia. 8. Elevated PSA. PLAN: At the present time, the patient was switched to p.o. Augmentin 875 p.o. q.12 hours for two more weeks. If okay with Dr. Guajardo, he is going to be discharged home on the workup as an outpatient to have a clear diagnosis of what type of malignancy he has and start him on some treatment. Please see home medication reconciliation list. All these were discussed with the patient and questions were answered to satisfaction. MD JUDE Smith/JANUSZ /[id number]
[2018-04-12] MEDS ORDERED: CEFTRIAXONE SOD 1 GM/NS 50 ML 50 ML IV SCH (15:00)
== END 2018-04-12 12:21 | disposition home or self-care (01) | DRG 180 ==
LOC: ER 10:10 → ERHOLD 15:40 → MED/SURG 16:24 → OBSVTOIN 04-08 14:22
PROVIDERS: ADMIT Internal Medicine; ATTEND Internal Medicine
PROC: 0B9J8ZX Drainage of Left Lower Lung Lobe, Via Natural or Artificial Opening Endoscopic, Diagnostic (ICD-10-PCS; 2018-04-07)
PROC: 0BDJ8ZX Extraction of Left Lower Lung Lobe, Via Natural or Artificial Opening Endoscopic, Diagnostic (ICD-10-PCS; principal; 2018-04-07 11:09)
DX: C34.90 Malignant neoplasm of unspecified part of unspecified bronchus or lung (principal); J18.0 Bronchopneumonia, unspecified organism; C79.51 Secondary malignant neoplasm of bone; I25.10 Atherosclerotic heart disease of native coronary artery without angina pectoris; Z95.1 Presence of aortocoronary bypass graft; R97.20 Elevated prostate specific antigen [PSA]; E78.5 Hyperlipidemia, unspecified; Z87.891 Personal history of nicotine dependence; E66.9 Obesity, unspecified; Z68.33 Body mass index [BMI] 33.0-33.9, adult; I25.2 Old myocardial infarction
CPT/HCPCS: 36415; 71045; 71046; 71250; 72157; 78315; 80048; 80053; 82378; 82550; 82553; 83605; 83880; 84152; 84484; 85025; 85610; 85730; 87040; 87070; 87102; 87116; 87205; 87206; 87335; 87400; 88112; 88305; 88342; 90732; 93005; 94640; 99284; A9503; G0378; J0171; J0456; J0696; J1885; J2001; J2250; J2370; J2405; J7030; J7050